=== PATIENT | male | born 1950 | race Caucasian/White ===

== ENCOUNTER 2017-01-30 06:18 | Day surgery (SDC) | payer OTHER ==
[~2017-01-30] VITALS: Ht 177.8 cm; Wt 114.0 kg
[~2017-01-30 06:18] MED LIST: DAILY VALUE1 EACH PO; HYDROCHLOROTHIA25 MG PO; LO-DOSE ASPIRIN81 M2 PO; NEXIUM40 MG PO; PROBIOTIC1 EAC3 PO; ULTRAM50 MG PO; ZESTRIL10 MG PO
[2017-01-30 07:02] VITALS: BP 150/86
[2017-01-30 10:08] VITALS: BP 137/76
[2017-01-30 10:49] VITALS: BP 134/74
== END 2017-01-30 10:55 | disposition home or self-care (01) ==
LOC: SDC 06:18
PROC: 085F3ZZ Destruction of Left Retina, Percutaneous Approach (ICD-10-PCS; principal; 2017-01-30)
PROC: 08B53ZZ Excision of Left Vitreous, Percutaneous Approach (ICD-10-PCS; principal; 2017-01-30)
DX: H43.12 Vitreous hemorrhage, left eye (principal); I10 Essential (primary) hypertension; K21.9 Gastro-esophageal reflux disease without esophagitis
CPT/HCPCS: J0690; J0713; J3300